=== PATIENT | female | born 1990 | race Hispanic/Latino ===

== ENCOUNTER 2016-11-22 14:24 | Inpatient (IN) | payer MEDICAID ==
[~2016-11-22] VITALS: Ht 144.1 cm; Wt 77.1 kg
[~2016-11-22 14:24] MED LIST: Docusate Sodium PO; Hydrocodone/Acetaminophen PO; Ibuprofen PO
[2016-11-22] MEDS ORDERED: Lactated Ringer's 1,000 ML IV PRN (15:16)
[2016-11-22] MEDS ORDERED: Sodium Chloride LOK Flush 10 mL Syringe IVFLUSH PRN (15:20)
[2016-11-22] MEDS ORDERED: Ondansetron 2 mg/mL 2 mL Inj IVPUSH PRN (15:20)
[2016-11-22] MEDS ORDERED: Oxytocin 30 Units/500 mL LR 30 UNITS in IV Premix 1 EACH IV PRN ×2 (15:20→18:20)
[2016-11-22] MEDS ORDERED: Oxytocin 10 Unit/mL Inj IM PRN ×2 (15:20→18:20)
[2016-11-22] MEDS ORDERED: Carboprost 250 mCg/mL Inj IM PRN ×2 (15:20→18:20)
[2016-11-22] MEDS ORDERED: fentaNYL-PF 50 mCg/mL 2 mL Inj IVPUSH PRN (15:20)
[2016-11-22] MEDS ORDERED: Methylergonovine 0.2 mg/mL Inj IM PRN ×2 (15:20→18:20)
[2016-11-22] MEDS ORDERED: Hemorrhage Kit, Post Partum XX ONE ×2 (15:20→18:20)
[2016-11-22 15:53] LABS: Mean Corpuscular Hemoglobin 22.6 pg (27.0-35.0); Mean Corpuscular Volume 74.9 fL (81-100)
--- NOTE | 2016-11-22 16:28 | PCM.HPOB ---
Subjective Date of Service: Nov 22, 2016 Referring Provider: Admitting Physician: Ana Laura Garcia MD Primary Care Physician: Ana Laura Garcia MD Attending Physician: Ana Laura Garcia MD Chief Complaint Term Labor with spontaneous rupture of membranes History of Present History of Present Illness 26 yo -0-0-2 at 39 weeks 1 day gestation presents to the [facility] in active labor with spontaneous rupture of membranes reported to be at 13:00 today. Upon arrival she was found to be 4 cm dilated, 80% effaced, and negative 2 station with contractions. Obstetric history includes cesarian section in 2007 followed by in 2013. She had a positive Chlamydia test in October, her and her partner were treated with a Z-ángel OB History: (3), Para (2), Term, Pre-term (0), (0), Living (2) Obstetrical Complications: None Past Medical History Obstetrical History: C section 2007 term 2013 term Past Family History Family History noncontributory Review of Systems Constitutional: Y: Dizziness, Chills, Fever Eyes: Denies: Blurred Vision, Double Vision Cardiovascular: Denies: Edema Respiratory: Denies: Cough Gastrointestinal: Reports: Abdominal Pain, Denies: Nausea, Vomiting Neurological: Denies: Dizziness Allergy Coded Allergies: No Known Allergies (Verified , 06/07/08) Exam Vital Signs stable, normal Exam FHR 130-140 1 variable some early decelerations. Category 1 tracing Constitutional: Well-developed, Well-nourished HEENT: Atraumatic Lungs: Clear to Auscultation, Normal Air Movement Heart: Regular Rate/Rhythm, No Murmurs/Rubs/Gallops Abdomen: Gravid Labs/Diagnostics Maternal Blood Type: O (pos) Hx Rho(D) Immune Globulin: No Group B Strep Results: Negative Rubella: Immune OB Intrapartum Assessment/Plan Assessment 26 yo -0-0-2 at 39 weeks 1 day gestation presents to the [facility] in active labor with spontaneous rupture of membranes reported to be at 13:00 today. 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 Problems: (1) Active labor at term Plan: Allow patient to labor as desired, monitor, provide supportive care. Status: Acute Pain Management: IV and epidural medications available Pain Evaluation: Adequate Pain Control Post plan: Continue routine post care Attending Statement The patient was seen and examined together with Dr. Meseret Moreno DO on 11/22/2016 and I agree with the history, exam and plan as outlined in the note above. MESERET MORENO DO Nov 22, 2016 16:28 Delores Hood MD Nov 22, 2016 18:47
[2016-11-22] MEDS ORDERED: Lactated Ringer's 1,000 ML IV SCH (18:17)
[2016-11-22] MEDS ORDERED: Witch Hazel-Glycerin Pads TOPICAL PRN (18:20)
[2016-11-22] MEDS ORDERED: Benzocaine (Dermoplast) 20% 60 Gm Spray TOPICAL PRN (18:20)
[2016-11-22] MEDS ORDERED: HYDROcodone-APAP 5-325 mg Tablet PO PRN (18:20)
[2016-11-22] MEDS ORDERED: LANOlin HPA 7 Gm Ointment TOPICAL PRN (18:20)
[2016-11-22] MEDS ORDERED: Ascorbic Acid 500 mg Tablet PO SCH (18:36)
--- NOTE | 2016-11-22 19:21 | PCM.OBVAG ---
Vaginal Delivery Date of Service Nov 22, 2016 Pre Operative Diagnosis Pre Operative Diagnosis Active labor at term Post Operative Diagnosis Post Operative Diagnosis Vaginal after Procedure Obstetical Procedure: Normal Spontaneous Vaginal Delivery (after ) Hostel Parent/Surgical First Assistant Provider and Surgical First Assistant: Delores Moreno DO Indication for Procedure Indication for Procedure Patient is a 26 yo G3P 2 0 0 2 who presented to Labor and Delivery the afternoon of 11/22/2016 in active labor with spontaneous rupture of membranes at 1300. She desired trial of labor, consent was discussed and signed. She made normal progress through labor and was found to be complete at 1735. She began pushing. FHR was baseline 130s-140s with moderate variability and some early decelerations. Induction: Active labor, SROM Findings Obstetrical Findings: (Male), Weight (3854 grams), Presentation (LOBO), 1 minute (8), 5 minutes (9), Placenta (Intact/Normal) Analgesia/Medications Procedural Analgesia: None Procedure Details Procedure Details A sterile drape was placed under the patient's buttocks and with expulsive efforts, she delivered head over an intact perineum. No nuchal cord. The rest of the body was delivered. The baby was placed on maternal abdomen. Warming and stimulating maneuvers were applied. Per patient request the infant was moved to the warmer after the cord was clamped, and cut. The infant was delivered at 17:58. The placenta then delivered spontaneously intact at 18:02 with a three vessel cord. Uterus firmed with manual external massage. The perineum was examined and there were no tears. Sponge and instrument counts were correct x2 at the close of the procedure. The patient and infant tolerated the procedure well and pt is stable in her room. Specimen none Blood Loss & Administration Estimated Blood Loss: 200 Post Procedure Plan Post Procedure Plan Normal care Post delivery Condition: Mom stable Attending Statement I was present for the entire procedure and assisted Dr. Moreno as needed and I agree with the above documentation. MESERET MORENO DO Nov 22, 2016 19:00 Delores Hood MD Nov 23, 2016 06:13
[2016-11-23 07:48] LABS: Mean Corpuscular Hemoglobin 22.3 pg (27.0-35.0); Mean Corpuscular Volume 75.6 fL (81-100)
[2016-11-23] MEDS ORDERED: Ascorbic Acid 500 mg Tablet PO SCH (08:00)
--- NOTE | 2016-11-23 10:58 | PCM.PNOBPP ---
Subjective Date of Service Nov 23, 2016 Post : Vaginal Delivery after Ceserean Subjective 26 yo -0-0-2 at 39 weeks s/p after spontaneous rupture of membranes and 13:00 on 11/22/2016. Obstetric history includes cesarian section in 2007 followed by in 2013. Pt had a positive Chlamydia test in Oct, Pt and her partner both treated with Z-ángel. Currently Chlamydia Lab pending. Lochia: Normal Pain Management: PO pain meds Gastrointestinal: Good Appetite, No N/V, Passing Flatus Postop Activity: Ambulate without Assist Group B Strep Results: Negative Rubella: Immune Blood Type: O (pos) Labs Laboratory Tests 11/23/16 07:05: White Blood Count 13.0, Red Blood Count 3.49, Hemoglobin 7.8, Hematocrit 26.4, Mean Corpuscular Volume 75.6, Mean Corpuscular Hemoglobin 22.3, Mean Corpuscular Hemoglobin Concent 29.5, Red Cell Distribution Width 15.7, Platelet Count 208 Exam Vital Signs Vital Signs: VS reviewed, stable (BP: 121/58, HR: 69. RR: 18. Temp: 36.5) Exam Abdomen: Fundus firm (palpated at appoximatly 2 finger width below umbilicus), Abdomen soft, Abdomen appropriately tender : Voiding without difficulty Extremities: Normal pulses, No tenderness/swelling, No edema Lungs: Clear to Auscultation, Normal Air Movement Heart: Exam Unremarkable, Regular Rate/Rhythm General: Alert, Oriented X3, Cooperative OB Post Assessment/Plan Assessment 26 year old s/p (). Mother and Baby doing well . Anticipate discharge home today. Problems: (1) , delivered, current hospitalization Plan: Plan is to discharge home today. Pain is well controlled with Ibuprofen, vaginal bleeding is light. Pt reports no more sx of dizziness or palpitations and feels comfortable to be discharged to home. Status: Acute ICD Code: O34.21 Pain Evaluation: Adequate Pain Control Post plan: Continue routine post care Attending Statement The patient was seen and examined together with Dr. Sewell on 11/23/2016 and I agree with the history, exam and plan as outlined in the note above. / MD BLANCA Du GILES A DO Nov 23, 2016 10:58 Buddy Mercer MD Dec 31, 2016 16:27
--- NOTE | 2016-11-23 11:21 | PCM.DC.OB ---
Obstetrical Discharge Summary Date of Service Nov 23, 2016 Date of hospital admission Nov 22, 2016 at 14:39 Date of Discharge: Nov 23, 2016 Providers Admitting Physician: Ana Laura Garcia MD Primary Care Physician: Ana Laura Garcia MD Attending Physician: Ana Laura Garcia MD Problems: (1) , delivered, current hospitalization Plan: Spontaneous vaginal delivery without complications, mother and baby doing well no concerns. Discharge to home today. Status: Acute ICD Code: O34.21 Brief History and Physical: H&P per Dr. Edgar on 11/22/2016 "26 yo -0-0-2 at 39 weeks 1 day gestation presents to the [facility] in active labor with spontaneous rupture of membranes reported to be at 13:00 today. Upon arrival she was found to be 4 cm dilated, 80% effaced, and negative 2 station with contractions. Obstetric history includes cesarian section in 2007 followed by in 2013. She had a positive Chlamydia test in October, her and her partner were treated with a Z-ángel" On interview Pt has no complaints Vital Signs: VS reviewed, stable (BP: 121/58, HR: 69. RR: 18. Temp: 36.5) Exam Abdomen: Fundus firm (palpated at approximately 2 finger width below umbilicus) , Abdomen soft, Abdomen appropriately tender : Voiding without difficulty Extremities: Normal pulses, No tenderness/swelling, No edema Lungs: Clear to Auscultation, Normal Air Movement Heart: Exam Unremarkable, Regular Rate/Rhythm General: Alert, Oriented X3, Cooperative Hospital Course: presented to [facility] in active labor with spontaneous rupture of membranes. Labor progressed normally without complications. She had a normal course, repeat labs showed pt to be anemic though this was asymptomatic. Pt had a Hx of Chlamydia, receiving ABX Tx in Oct, at time of dictation repeat testing pending. ([Ascorbic Acid]) 500 MG TABLET 500 MG PO BIDWM Prescribed by: CATALINA SEWELL DO Docusate Sodium (Colace) 100 Mg Capsule 100 MG PO BID Prescribed by: CATALINA SEWELL DO Ferrous Sulfate (Feosol) 325 Mg Tablet 325 MG PO BIDWM Prescribed by: CATALINA SEWELL DO Ibuprofen (Ibuprofen) 600 Mg Tablet 600 MG PO Q6H PRN PRN For Mild Pain Prescribed by: CATALINA SEWELL, DO Discharge Medications: Vit C, Colace, ibuprofen Disposition Discharge to home in stable condition Follow-up plan Follow up in [facility] in 6 weeks. Discharge Diet: No restrictions Discharge Activity-General: Pelvic Rest for 6 weeks, Try not to overdue, Be up and about, Balance rest and activity, Activity as pain allows, Activity as energy allows, No lifting >15 pounds for 2 weeks Patient instructions Please take the iron and vitamin C together for your anemia. You may take the ibuprofen as needed for pain relief, please take as directed on the prescription - 1 600 mg tablet every 4 to 6 hours by mouth as needed for pain, do not exceed 3200mg in any 24 hour period. Iron can give you constipation so you have been given a prescription for docusate to keep you regular. Be sure to call the [facility] clinic on Thursday (11/25/2016) top schedule a follow up appointment in 6 weeks, as well as to discuss future contraception plans. If you have a fever greater than 100.4 degrees Fahrenheit p[lease call Women's health, there is always someone pulmonology technician to talk to. If you have an increase in bleeding, call women's health. If you have a lot of bleeding suddenly, especially oif you have symptoms of dizziness and weakness with it, get emergency help. If you start experiencing extreme depression, especially if you feel that you are a danger to yourself or your family, seek emergency help. you have been through a lot -- be sure to take care of yourself. Por favor tome el kylie y la vitamina C para tu anemia. Usted puede arben el ibuprofeno para aliviar el dolor, por favor tome molly se indica en la receta - 1 600 mg comprimidos cada 4 a 6 horas por va oral segn sea necesario para el dolor, no exceder 3200 mg en cualquier periodo de 24 horas. Kylie puede gus estreimiento por lo que le correa dado arlette receta de docusate para mantenerte regular. Ser seguro para llamar a la clnica mar [facility] (25/11/2016) programar arlette yadira en 6 semanas, as molly para discutir los planes de futuro de la anticoncepcin de seguimiento. Si usted tiene arlette fiebre de ms de 100,4 grados Fahrenheit p [arrendamiento llame a gilbert de las mujeres, siempre hay alguien de brent para hablar. Si tiene un aumento en el sangrado, llame a gilbert de la phuong. Si tienes mucho sangrado de repente, especialmente oif se presentan sntomas de mareo y debilidad, busque atencin de emergencia. Si usted comience a experimentar depresin extrema, especialmente si usted siente que usted es un peligro para usted o maloney betito, busque ayuda de emergencia. correa sido muchas, asegrese de cuidar de ti mismo. Traducido utilizando [employer] [facility] no translate - ninguna traduccin disponible para [facility] Attending Statement: The patient was seen and examined together with Dr. Sewell on 11/23/2016 and I agree with the history, exam and plan as outlined in the note above. / MD BLANCA Du GILES A DO Nov 23, 2016 11:21 Buddy Mercer MD Dec 31, 2016 16:28 CATALINA SEWELL DO Nov 23, 2016 11:21
[2016-11-23] MEDS ORDERED: Ascorbic Acid PO (12:02)
[2016-11-23] MEDS ORDERED: DOCU-41 PO (12:02)
[2016-11-23] MEDS ORDERED: FERR-74 PO (12:02)
[2016-11-23] MEDS ORDERED: IBUP-1827 PO (12:02)
--- NOTE | 2016-11-23 12:07 | PCM.DIOB ---
Obstetrical Disch Instruction Date of Service: Nov 23, 2016 Dates of Hospitalization Date of Hospital Admission Nov 22, 2016 at 14:39 Providers Admitting Physician: Ana Laura Garcia MD Primary Care Physician: Ana Laura Garcia MD Attending Physician: Ana Laura Garcia MD Discharge Diagnosis Problems: (1) , delivered, current hospitalization Plan: Discharge to home, continue taking Iron & Vit C, Ibuprofen and Colace PRN. Follow up with [facility] in 6 weeks. Status: Acute ICD Code: O34.21 Diet Discharge Diet: No restrictions Activity Discharge Activity-General: Pelvic Rest for 6 weeks, Try not to overdue, Be up and about, Balance rest and activity, Activity as pain allows, Activity as energy allows, No lifting >15 pounds for 2 weeks Dressing and Incisional Care Hygiene: May shower, NO bathtub, hot tub or whirlpool, Perineal care Additional Instructions Discharge Instructions Please take the iron and vitamin C together for your anemia. You may take the ibuprofen as needed for pain relief, please take as directed on the prescription - One 600 mg tablet every 6 hours by mouth as needed for pain, do not exceed 3200mg in any 24 hour period. Iron can give you constipation so you have been given a prescription for docusate to keep you regular. Be sure to call the [facility] on Thursday (11/25/2016) top schedule a follow up appointment in 6 weeks, as well as to discuss future contraception plans. If you have a fever greater than 100.4 degrees Fahrenheit p[lease call Women's health, there is always someone implementation analyst to talk to. If you have an increase in bleeding, call women's health. If you have a lot of bleeding suddenly, especially oif you have symptoms of dizziness and weakness with it, get emergency help. If you start experiencing extreme depression, especially if you feel that you are a danger to yourself or your family, seek emergency help. you have been through a lot -- be sure to take care of yourself. Por favor tome el kylie y la vitamina C para tu anemia. Usted puede arben el ibuprofeno para aliviar el dolor, por favor tome molly se indica en la receta - natalie 600 mg comprimidos cada 6 horas por va oral segn rigoberto necesario para el dolor, no exceder 3200 mg en cualquier periodo de 24 horas. Kylie puede gus estreimiento por lo que le correa dado arlette receta de docusate para mantenerte regular. Ser seguro para llamar a la clnica mar [facility] (25/11/2016) programar arlette yadira en 6 semanas, as molly para discutir los planes de futuro de la anticoncepcin de seguimiento. Si usted tiene arlette fiebre de ms de 100,4 grados Fahrenheit p [arrendamiento llame a gilbert de las mujeres, siempre hay alguien de brent para hablar. Si tiene un aumento en el sangrado, llame a gilbert de la phuong. Si tienes mucho sangrado de repente, especialmente oif se presentan sntomas de mareo y debilidad, busque atencin de emergencia. Si usted comience a experimentar depresin extrema, especialmente si usted siente que usted es un peligro para usted o maloney betito, busque ayuda de emergencia. correa sido muchas, asegrese de cuidar de ti mismo. Traducido utilizando [employer] no translate - ninguna traduccin disponible para [facility] Follow Up Plan Follow Up Plan Follow up at [facility] in 6 weeks, call for appointment this week. Follow-up appointment: Weeks (6) Call your provider for: Fever or Chills, Shortness of breath, Heavy vaginal bleeding, Heavy bleeding, Epigastric pain, Excessive constipation, Vaginal discomfort, Red painful breasts CATALINA RIOS A DO Nov 23, 2016 12:07
[2016-11-23 18:00] VITALS: BP 111/58; PULSE 90; RESP 16
== END 2016-11-23 18:00 | disposition home or self-care (01) | DRG 560 ==
LOC: FBCO 14:24 → FBC 14:39
PROVIDERS: ADMIT Obstetrics & Gynecology; ATTEND Obstetrics & Gynecology
PROC: 10E0XZZ Delivery of Products of Conception, External Approach (ICD-10-PCS; principal; 2016-11-22)
DX: O34.219 Maternal care for unspecified type scar from previous cesarean delivery (principal); Z37.0 Single live birth; Z3A.39 39 weeks gestation of pregnancy